=== PATIENT | female | born 1970 | race Caucasian/White ===

== ENCOUNTER 2016-11-12 07:15 | Emergency (ER) ==
[2016-11-12 07:21] VITALS: BP 143/79
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
== END 2016-11-12 07:27 | disposition home or self-care (01) ==
LOC: ED 07:15
DX: H66.91 Otitis media, unspecified, right ear (principal); H92.01 Otalgia, right ear; F32.9 Major depressive disorder, single episode, unspecified; F17.210 Nicotine dependence, cigarettes, uncomplicated; Z79.899 Other long term (current) drug therapy; Z71.6 Tobacco abuse counseling
CPT/HCPCS: 99281